=== PATIENT | female | born 2000 | race Caucasian/White ===

== ENCOUNTER → 2024-03-12 13:26 | Outpatient (REF) | payer BC, SELFPAY ==
[2024-03-21 23:45] LABS: Chlamydia trachomatis,ThinPrep Negative (Negative); Neisseria gonorrhoeae,ThinPrep Negative (Negative); Specimen Source Cervical
== END ==
LOC: CPAP 13:26
PROVIDERS: ATTENDING PHYSICIAN Nurse Practitioner Adult Health
DX: Z01.419 Encounter for gynecological examination (general) (routine) without abnormal findings (principal); Z11.3 Encounter for screening for infections with a predominantly sexual mode of transmission
CPT/HCPCS: 87491; 87591; G0123

== ENCOUNTER → 2024-09-25 11:24 | Outpatient (REF) | payer OTHER, SELFPAY | LOC: RCS 11:24 | PROVIDERS: ATTENDING PHYSICIAN Nurse Practitioner Family; FAMILY PHYSICIAN Family Medicine | DX: R00.2 Palpitations (principal); F41.1 Generalized anxiety disorder; R53.83 Other fatigue | CPT/HCPCS: 93005 ==